=== PATIENT | female | born 1955 | race Caucasian/White ===

== ENCOUNTER 2017-05-23 03:47 | Observation (INO) | payer MEDICARE, MEDICAID ==
[2017-05-23 04:43] LABS: #Eosinphils 0.1 thou/uL (0.0-0.7); #Lymphocytes 1.7 thou/uL (1.20-3.40); #Monocytes 0.7 thou/uL (0.11-0.59); #Neutrophils 10.6 thou/uL (1.40-6.50); %Basophils 0.3 % (0.0-1.0); %Eosinophils 0.4 % (0.0-10.0); %Lymphocytes 12.7 % (21.0-51.0); %Monocytes 5.4 % (0.0-10.0); %Neutrophils 81.1 % (42.0-75.0); Hemoglobin 13.8 g/dL (12.0-16.0); Mean Corpuscular HGB CONC 33.5 g/dL (32.0-36.0); Mean Corpuscular Hemoglobin 30.1 pg (27.0-31.0); Mean Corpuscular Volume 89.7 fl (81.0-99.0); Mean Platelet Volume 6.5 fL (7.4-10.4); Platelet Count 320 thou/uL (130-400); RBC Distribution Width 11.6 % (11.5-14.5); White Blood Cell (WBC) Count 13.1 thou/uL (4.8-10.8)
[2017-05-23 05:09] LABS: ALT (SGPT) 26 U/L (8-55); AST (SGOT) 17 U/L (5-34); Albumin 4.4 g/dL (3.4-4.8); Alkaline Phosphatase 94 U/L (40-150); Anion Gap 18 mmol/L (10-20); BUN (Urea Nitrogen) 18 mg/dL (9.8-20.1); Bilirubin, Total 0.3 mg/dL (0.2-1.2); Calc. Creatinine Clearance 0 mL/min (70-130); Calcium 9.3 mg/dL (7.8-10.44); Carbon Dioxide 22 mmol/L (23-31); Chloride 101 mmol/L (98-107); Estimated GFR-MDRD 85; Globulin 2.9 g/dL (2.4-3.5); Glucose 139 mg/dL (80-115); Lipase 211 U/L (8-78); Potassium 4.1 mmol/L (3.5-5.1); Protein, Total 7.3 g/dL (6.0-8.3); Sodium 137 mmol/L (136-145)
[2017-05-23 05:13] LABS: CKMB 2.8 ng/mL (0-6.6); Troponin I Less than 0.010 ng/mL (< 0.028)
[2017-05-23] MEDS ORDERED: Acetaminophen 325 MG TAB PO PRN (07:08)
[2017-05-23] MEDS ORDERED: Ondansetron ODT 4 MG TAB SL PRN (07:08)
[2017-05-23] MEDS ORDERED: Ondansetron HCl/PF 4 MG/2 ML Vial IVP PRN (07:08)
[2017-05-23] MEDS ORDERED: Nitroglycerin 0.4 MG TAB 1 EACH SL SCH (07:15)
[2017-05-23] MEDS ORDERED: Nitroglycerin 0.4 MG TAB (25 Tab Bottle) PO PRN (07:51)
[2017-05-23 07:53] VITALS: BMI 28.5
[2017-05-23] MEDS ORDERED: hydrALAZINE 20 MG/ML VIAL SLOW IVP PRN (07:53)
[2017-05-23 07:56] LABS: Troponin I 0.015 ng/mL (< 0.028)
[2017-05-23] MEDS ORDERED: PROVENTIL INHALER 6.7 G (200 INHALATIONS) INH PRN (07:56)
[2017-05-23] MEDS ORDERED: methylPREDNISolone 4 mg Tablet PO SCH ×2 (08:00→12:00)
[2017-05-23] MEDS ORDERED: CONFIRM ALL DAY 1 DOSES ARE TIMED FOR DAY 1 FS SCH (08:15)
[2017-05-23 08:21] LABS: Cardiac Risk 2.8 (Less than 4.5)
[2017-05-23] MEDS: Atorvastatin Calcium 40 MG TAB PO SCH (08:35)
[2017-05-23] MEDS: Enoxaparin Sodium 40 MG/0.4 ML SYRINGE SC SCH (08:35)
[2017-05-23] MEDS ORDERED: Benzonatate 100 MG CAP PO PRN (09:57)
--- NOTE | 2017-05-23 10:03 | RAD ---
SINGLE VIEW CHEST: Date: 05/23/17 COMPARISON: None. HISTORY: Mid sternal chest pain. FINDINGS: Single view of the chest shows a normal sized cardiomediastinal silhouette. There is no evidence of c onsolidation, mass, or pleural effusion. The bones are unremarkable. IMPRESSION: No evidence of acute cardiopulmonary disease. POS: [facility]
--- NOTE | 2017-05-23 10:07 | HP-2 ---
DATE OF ADMISSION: 05/23/2017 CODE STATUS: FULL. PRIMARY CARE PHYSICIAN: None. ATTENDING: Dr. Chase. RESIDENT: Dr. Villa. CHIEF COMPLAINT: Chest pain. HISTORY OF PRESENT ILLNESS: This is a 61-year-old female with past medical history of CVA, prior PE, hypertension, who presents to the ED due to substernal achy chest pain with radiation to the back. She woke up from sleep around 3:00 a.m. She took 4 tablets of 81 mg aspirin at home. She has some a ssociated shortness of breath. She got a nitro by EMS, which improved her symptoms. Her blood press ure at home at symptom onset was 205/175 per the patient. She had recent chronic cough for about a m onth that is a dry cough and reports that she was diagnosed with acute bronchitis and she did with al buterol and Medrol Dosepak for this. She denies any recent fevers or chills. PAST MEDICAL HISTORY: 1. Transient ischemic attack x3. 2. CVA with residual left-sided weakness. 3. Syringomyelia. 4. Asthma. 5. Prolapsed mitral valve. 6. Hypertension. PAST SURGICAL HISTORY: 1. Appendectomy. 2. Hysterectomy. 3. Bilateral mastectomy. ALLERGIES: AMOXICILLIN, PENICILLIN. MEDICATIONS: 1. Albuterol. 2. Medrol Dosepak. FAMILY HISTORY: Brother, diabetes, coronary artery disease at 69, several other family members with diabetes. SOCIAL HISTORY: Denies tobacco or drug use. Reports that she drinks alcohol a couple glasses 2-3 ti mes a week. She is . REVIEW OF SYSTEMS: General: Denies fever, chills, fatigue. Eyes: Positive for vision changes. Ne gative for eye pain. ENT: Negative for rhinorrhea, positive for sore throat. Respiratory: Positive for cough and shortness of breath. Cardiovascular: Positive for chest pain, palpitations. Negative for edema. Gastrointestinal: Negative for nausea, vomiting. Positive for d iarrhea. Genitourinary: Negative for dysuria, polyuria. Skin: Negative for rashes or lesions. Musculoskeletal: Negative for pain or tenderness. Neurologic: Positive for left-sided weakness. N egative for numbness. PHYSICAL EXAMINATION: VITAL SIGNS: Blood pressure 164/87, pulse 91, respiratory rate 18, temperature 98.7, pulse ox 95% on room air, current weight 73.94 kilograms. GENERAL: Alert, oriented x3, no acute distress, well-nourished, appropriately interactive. EYES: PERRLA. Extraocular muscles intact. Conjunctivae within normal limits. ENT: Nasal mucosa and oropharynx within normal limits. NECK: Supple, no lymphadenopathy. CARDIOVASCULAR: Regular rate and rhythm, 3/6 systolic murmur. Pain reproduced upon palpation and price d 2+ radial and pedal pulses. RESPIRATORY: Normal effort, no retractions, clear to auscultation bilaterally. SKIN: Warm, dry. No cyanosis or lesions. ABDOMEN: Soft, nontender to palpation, normoactive bowel sounds, no masses or distention. EXTREMITIES: No cyanosis. Trace pitting edema. MUSCULOSKELETAL: Structure, tone within normal limits. Full range of motion. NEUROLOGIC: Sensation within normal limits. Residual left-sided facial droop. GCS 15. PSYCHIATRIC: Appropriate. LABORATORY DATA: WBC 13.1, hemoglobin 13.8, hematocrit 41.3, platelets 320. Sodium 137, potassium 4 .1, CO2 22, chloride 101, BUN 18, creatinine 0.7, GFR 85, glucose 139, calcium 9.3, total protein 7.3 , albumin 4.4, total bilirubin 0.3, AST 17, ALT 26, alkaline phosphatase 94, lipase 211, BNP 56.4. E KG showed prior septal infarct. IMAGING: CT dissection, preliminary read showing no dissection. ASSESSMENT AND PLAN: This is a 61-year-old female who presents with: 1. Atypical chest pain, heart score is 4. The patient has multiple risk factors for coronary artery disease; however, this is more likely musculoskeletal with atypical presentation and however reprodu cible on palpation. This is likely secondary to the patient's chronic cough. We will do an exercise stress test. We will treat with aspirin, nitro p.r.n. We will check fasting lipid panel and TSH to further risk stratify the patient. 2. Hypertensive urgency. We will give p.r.n. hydralazine, labetalol and consider starting the patie nt on p.o. hypertensive medication. 3. Mitral valve prolapse. The patient is to be on treatment, currently untreated. We will get an e cho. 4. Chronic cough. This could be contributing the patient's chest pain. We will continue albuterol and steroids for pleuritis type pain. 5. Leukocytosis, mild, this is likely secondary to steroid use. 6. History of cerebrovascular accident with residual left-sided weakness. We will check fasting lip id panel and aspirin. 7. Hyperglycemia, likely secondary to steroids. We will check fasting glucose and if abnormal, we w ill check A1c. 8. Venous thromboembolism prophylaxis. Lovenox. DISPOSITION: Observation on telemetry. Symptomatic medications will be provided. History and physical exam as well as management discussed with Dr. Chase.
[2017-05-23 11:05] LABS: Troponin I 0.016 ng/mL (< 0.028)
--- NOTE | 2017-05-23 11:18 | CT ---
PRELIMINARY REPORT/[facility]/EMERGENCY AFTER HOURS PROCEDURE: EXAM: CT Angiography Chest With Intravenous Contrast CLINICAL HISTORY: 61 years old, female; Pain; Chest pain; Patient HX: 61 y/o f w/ pmhx of tiax3 and prior provoked pe p resents for eval of substernal achey chest pain w/ radiation straight through into her back which awo ke her from sleep around 0300 this am. Endorses associated SOB. Reportedly pt checked BP at onset of pain w/ systolic in the 200's. TECHNIQUE: Axial computed tomographic angiography images of the chest with intravenous contrast using pulmonary embolism protocol. Coronal and sagittal reformatted images were created and reviewed. COMPARISON: No relevant prior studies available. FINDINGS: Pulmonary arteries: There is no evidence of peripheral filling defects within the pulmonary arterial circulation to suggest pulmonary embolism. Aorta: There is no evidence of aortic dissection, leak, rupture, or other complications. The aorta is normal. Lungs: There is subpleural atelectasis of the dependent portions of the lungs. No mass. Pleural space: Normal. No significant effusion. No pneumothorax. Heart: Normal. No cardiomegaly. No significant pericardial effusion. No evidence of RV dysfunction. Mediastinum: The trachea is normal. There are mediastinal calcifications compatible with prior granul omatous organism exposure. Thyroid: The visualized thyroid gland is unremarkable. Bones/joints: No acute fracture. No dislocation. Soft tissues: There is irregular linear density within the RIGHT breast implant which is hyperdense r elative to the LEFT breast implant. Correlate with type of surgery as this may represent implant rupt ure in the appropriate clinical setting. Lymph nodes: Normal. No enlarged lymph nodes. IMPRESSION: 1. There is no evidence of aortic dissection, leak, rupture, or other complications. 2. There is no CT evidence of acute pulmonary embolism. EXAM: CT Angiography Abdomen With Intravenous Contrast EXAM DATE/TIME: Exam ordered 05/23/2017 4:55 AM CLINICAL HISTORY: 61 years old, female; Pain; Chest pain; Patient HX: 61 y/o f w/ pmhx of tiax3 and prior provoked pe p resents for eval of substernal achey chest pain w/ radiation straight through into her back which awo ke her from sleep around 0300 this am. Endorses associated SOB. Reportedly pt checked BP at onset of pain w/ systolic in the 200's. TECHNIQUE: Axial computed tomographic angiography images of the abdomen with intravenous contrast. Coronal and sagittal reformatted images were created and reviewed. COMPARISON: No relevant prior studies available. FINDINGS: Lower thorax: No acute findings. Aorta: There is no evidence of aortic dissection, leak, rupture, or other complications. The aorta is normal. Celiac trunk and mesenteric arteries: No acute findings. No occlusion or significant stenosis. Renal arteries: No acute findings. No occlusion or significant stenosis. Liver: There is a diffuse decrease in hepatic parenchymal density, consistent with fatty infiltration . Gallbladder and bile ducts: Normal. No calcified stones. No ductal dilation. Pancreas: The pancreas is normal. No ductal dilation. Spleen: The spleen demonstrates punctate calcifications, consistent with remote granulomatous organis m exposure. Adrenals: The adrenal glands are normal. Kidneys and ureters: The kidneys are normal. No hydronephrosis. Stomach and bowel: The stomach is normal. The duodenum is unremarkable. No obstruction. No mucosal th ickening. Intraperitoneal space: Normal. No significant fluid collection. No free air. Bones/joints: There is a benign vertebral body hemangioma. No acute fracture. No dislocation. Soft tissues: Normal. No mass. Lymph nodes: Normal. No enlarged lymph nodes. IMPRESSION: There is no evidence of aortic dissection, leak, rupture, or other complications. Thank you for allowing us to participate in the care of your patient. Dictated and Authenticated by: Sascha Sauceda MD 05/23/2017 5:22 AM Central Time ([place] & [place]) FINAL REPORT CONTRAST ENHANCED CTA CHEST AND ABDOMEN: Date: 05/23/17 HISTORY: 61-year-old female with chest pain. FINDINGS: 2D and 3D reconstructed images performed on an independent 3D workstation. Preliminary exam was provided by [facility]. I concur with the dictation from [facility]. No definit e evidence of significant thoracic or abdominal aortic pathology is seen. No evidence of aneurysms or dissection seen.
[2017-05-23] MEDS: Diabetic Tussin 200 MG/10 ML UDCUP PO PRN ×3 (11:39→23:11)
--- NOTE | 2017-05-23 14:15 | PDOC.EVN ---
Event Note - Event Note Event Note: I personally evaluated the patient and discussed the management with Dr. Villa. I agree with the history, physical, assessment and plan as documented by the resident. Briefly this is a 61 year old WF with h/o TIA x 3, CVA with residual left sided weakness, HTN, asthma, syringomelia, and mitral valve prolapse whoc presented with c/o cough for last 4-6 months and new onset of substernal chest pain last night that awoke her from sleep. No prior episodes of chest pain. (+) diaphoresis. Denies any N/V. Pain radiated to her back. Took aspirin at home and pain improved with NTG. Noted in ER to have markedly elevated BP. Patietn states that she has not been on BP meds for serval months due to multiple recent moves with her 's work. EKG- no acute ST changes; troponin negative x 3. Pain reproducible on exam. A/P: 1) Pleuritic chest pain due to chronic cough- Tylenol for pain. 2) Chronic cough- suspect uncontrolled asthma and pt reports new dog in house so probable allergic component- will treat for asthma with scheduled nebulizer treatment, po steroids. 3) Moderate persistent asthma- has only been on short acting beta agonist which she has been using multiple times per day- start inhaled steroid/LABA; consider additional of singulair. 4) HTN- start BP medsications and titrate as needed.
[2017-05-23] MEDS ORDERED: ISOVUE-370 76%-LOCM 1 ML ONE (16:01)
[2017-05-23] MEDS: methylPREDNISolone 4 mg Tablet PO SCH ×2 (16:46→20:42)
[2017-05-23] MEDS ORDERED: Loratadine 10 MG TAB PO SCH (18:15)
[2017-05-23] MEDS: Mometasone/Formoterol 120 PUFF INHALER INH SCH (19:16)
[2017-05-23] MEDS: Verapamil 80 MG TAB PO SCH (20:41)
[2017-05-23] MEDS: Ketorolac Tromethamine 10 MG TAB PO PRN (23:51)
[2017-05-24 04:04] VITALS: TEMP 97.9
[2017-05-24 05:18] LABS: #Basophils 0.1 thou/uL (0.0-0.2); #Lymphocytes 1.4 thou/uL (1.20-3.40); #Monocytes 0.9 thou/uL (0.11-0.59); %Basophils 0.6 % (0.0-1.0); %Eosinophils 0.4 % (0.0-10.0); %Lymphocytes 13.6 % (21.0-51.0); %Monocytes 8.3 % (0.0-10.0); %Neutrophils 77.2 % (42.0-75.0); Hemoglobin 13.4 g/dL (12.0-16.0); Mean Corpuscular HGB CONC 31.9 g/dL (32.0-36.0); Mean Corpuscular Hemoglobin 28.9 pg (27.0-31.0); Mean Corpuscular Volume 90.6 fl (81.0-99.0); Platelet Count 281 thou/uL (130-400); RBC Distribution Width 11.8 % (11.5-14.5); Red Blood Cell (RBC) Count 4.62 mill/uL (4.20-5.40); White Blood Cell (WBC) Count 10.4 thou/uL (4.8-10.8)
[2017-05-24 05:36] LABS: Anion Gap 12 mmol/L (10-20); BUN (Urea Nitrogen) 18 mg/dL (9.8-20.1); Calc. Creatinine Clearance 109 mL/min (70-130); Calcium 9.1 mg/dL (7.8-10.44); Carbon Dioxide 27 mmol/L (23-31); Chloride 102 mmol/L (98-107); Estimated GFR-MDRD 86; Glucose 129 mg/dL (80-115); Potassium 4.2 mmol/L (3.5-5.1); Sodium 137 mmol/L (136-145)
[2017-05-24] MEDS: Ketorolac Tromethamine 10 MG TAB PO PRN (07:10)
[2017-05-24] MEDS ORDERED: methylPREDNISolone 4 mg Tablet PO SCH ×3 (08:00→21:00)
[2017-05-24] MEDS: Mometasone/Formoterol 120 PUFF INHALER INH SCH (08:37)
[2017-05-24] MEDS: Enoxaparin Sodium 40 MG/0.4 ML SYRINGE SC SCH (08:58)
[2017-05-24] MEDS: Verapamil 80 MG TAB PO SCH (09:02)
[2017-05-24] MEDS: Atorvastatin Calcium 40 MG TAB PO SCH (09:02)
[2017-05-24] MEDS: Diabetic Tussin 200 MG/10 ML UDCUP PO PRN (09:02)
--- NOTE | 2017-05-24 09:11 | PDOC.FM ---
- Subjective Subjective: Pt had no acute events overnight. Reports improvement in both epigastric/lower sternal pain and improved respiratory status with inhaler. Denies SOB, NVDC, tolerating diet. - Objective Vital Signs & Weight: Vital Signs (12 hours) Temp Pulse Resp BP Pulse Ox 05/24/17 08:38 90 14 05/24/17 08:09 97.9 F 78 16 05/24/17 03:55 97.9 F 78 16 139/72 97 05/24/17 00:29 70 18 96 05/23/17 23:11 81 16 165/82 H 95 Weight Weight 80.739 kg I&O: 05/23/17 05/24/17 05/25/17 06:59 06:59 06:59 Intake Total 1725 Output Total 800 800 Balance 925 -800 Result Diagrams: 05/24/17 04:25 05/24/17 04:25 <Bhargav Velasquez - Last Filed: 05/24/17 09:14> - Objective Vital Signs & Weight: Vital Signs (12 hours) Temp Pulse Resp BP Pulse Ox 05/24/17 08:38 90 14 05/24/17 08:09 97.9 F 78 16 05/24/17 08:00 101 H 18 146/70 H 97 05/24/17 03:55 97.9 F 78 16 139/72 97 05/24/17 00:29 70 18 96 Weight Weight 80.739 kg I&O: 05/23/17 05/24/17 05/25/17 06:59 06:59 06:59 Intake Total 1725 240 Output Total 800 800 Balance 925 -560 Result Diagrams: 05/24/17 04:25 05/24/17 04:25 <Julianna Chase - Last Filed: 05/24/17 11:24> Phys Exam - Physical Examination Constitutional: NAD HEENT: PERRLA, sclera anicteric Neck: no nodes, no JVD Respiratory: no wheezing, no rales, no rhonchi, clear to auscultation bilateral Cardiovascular: RRR, no rub diastolic murmur 2/6 Gastrointestinal: soft, non-tender, no distention, positive bowel sounds Musculoskeletal: no edema, pulses present Neurological: non-focal, moves all 4 limbs Psychiatric: normal affect <Bhargav Velasquez - Last Filed: 05/24/17 09:14> Dx/Plan (1) Atypical chest pain Code(s): R07.89 - OTHER CHEST PAIN Status: Acute (2) Asthma Code(s): J45.909 - UNSPECIFIED ASTHMA, UNCOMPLICATED Status: Acute (3) Seasonal allergies Code(s): J30.2 - OTHER SEASONAL ALLERGIC RHINITIS Status: Acute (4) Elevated lipase Code(s): R74.8 - ABNORMAL LEVELS OF OTHER SERUM ENZYMES Status: Acute - Plan Plan: pt reports improvement in symptoms since yesterday had echo done today, denied chemical stress and wishes to have OP treadmill stress BP improved with verapamil SOB/cough improved with use of dulera and duonebs continue claritin stable for DC today, f/u OP w/in 2 weeks elevated lipase: pt tolerating PO and states her pain is improving, can f/u OP elevated BS, will check A1c <Bhargav Velasquez - Last Filed: 05/24/17 09:14> Attending Addendum - Attending Addendum I personally evaluated the patient and discussed the management with Dr. Velasquez. I agree with the History, Examination, Assessment and Plan documented above with any addition or exceptions noted below- Patient feeling better; cough improved. SOB improved. Afebrile VSS A/P: 1) Asthma exacerbation- improved; plan to d/c home today with steroid/LABA inhaler, albuterol, and short course po steroids. 2) Chronic cough- most likely related to asthma; continue current meds. 3) HTN urgency- improved; continue current meds. D/c home today and follow -up in clinic in 1-2 weeks. <Julianna Chase - Last Filed: 05/24/17 11:24>
[2017-05-24 09:26] VITALS: BP 146/70
[2017-05-24 09:39] LABS: Hemoglobin A1c 5.6 % (4.0-6.0)
[2017-05-25] MEDS ORDERED: methylPREDNISolone 4 mg Tablet PO SCH ×2 (08:00)
--- NOTE | 2017-05-25 12:02 | DIS-2 ---
DATE OF SERVICE: 06/01/2017 DATE OF ADMISSION: 05/23/2017 DATE OF DISCHARGE: 05/24/2017 LOCATION: [place], [place]. CO-SIGNER: Julianna Chase M.D. ADMITTING ATTENDING: Julianna Chase M.D. DISCHARGE ATTENDING: Julianna Chase M.D. CONSULTS: None. PROCEDURES: 1. Chest x-ray done on 05/23/2017 showed no evidence of acute cardiopulmonary process. 2. CT dissection protocol done on 05/23/2017 showed no evidence of dissection leak, rupture or other complications. 3. Echocardiogram done on 05/23/2017 showed ejection fraction at 55-60%, normal right ventricular si ze and function, left atrium and normal size, normal right atrium size, mild mitral regurgitation, st ructurally normal aortic valve, trace tricuspid regurg, and mild pulmonic regurgitation. PRIMARY DIAGNOSIS: Atypical chest pain. SECONDARY DIAGNOSES: 1. Hypertension. 2. Asthma. 3. Seasonal allergies. DISCHARGE MEDICATIONS: 1. Albuterol 2 puffs q.6 hours as needed. 2. Atorvastatin 40 mg daily. 3. Medrol Dosepak 4 mg p.o. as directed. 4. Dulera 1 puff b.i.d. 5. Verapamil 80 mg p.o. t.i.d. DISCONTINUED MEDICATIONS: None. HISTORY OF PRESENT ILLNESS/HOSPITAL COURSE: The patient is a 61-year-old female who initially presen annalee with substernal achy chest pain with radiation to her back that woke her up from sleep. She also had some associated shortness of breath. In the emergency department, she was given nitro and her t roponins were trended as well as EKG performed. As reported by the patient, her blood pressure at [facility] was 205/175. She also reported a dry cough for a month prior to her visit to the ER. Serial trop onins were drawn and found to be 0.015, 0.016. CK-MB was performed and was found to be 2.8. A fasti ng lipid panel revealed triglycerides of 77, total cholesterol 231, LDL 133, HDL 83. Overall, the patient had an uncomplicated hospital course and was found to have no acute coronary syn drome and there is no concern for PR. She was discharged home on her regular medications and left [facility] in stable condition. DISPOSITION: Stable. DISCHARGE INSTRUCTIONS: 1. Location: Home. 2. Diet: Heart healthy. 3. Activity: Ad víctor. 4. Followup: The patient is to follow up with [facility] in 7-10 days following discharge .
[2017-05-26] MEDS ORDERED: methylPREDNISolone 4 mg Tablet PO SCH ×2 (08:00)
[2017-05-27] MEDS ORDERED: methylPREDNISolone 4 mg Tablet PO SCH (08:00)
[2017-05-28] MEDS ORDERED: methylPREDNISolone 4 mg Tablet PO SCH (08:00)
--- NOTE | 2017-06-02 17:49 | EKG ---
Test Reason : Blood Pressure : / mmHG Vent. Rate : 108 BPM Atrial Rate : 108 BPM P-R Int : 164 ms QRS Dur : 086 ms QT Int : 362 ms P-R-T Axes : 059 012 045 degrees QTc Int : 485 ms Sinus tachycardia Septal infarct , age undetermined Abnormal ECG Confirmed by KASEY HUGHES D.O. ([id number]), story editor CELESTINA PRYOR ([id number]) on 06/02/2017 5:48:10 PM Referred By: Confirmed By:KASEY HUGHES D.O.
== END 2017-05-24 12:34 | disposition home or self-care (01) ==
LOC: ERS 03:47 → 2SW 05:55
PROVIDERS: ADMIT Emergency Medicine; ATTEND Emergency Medicine
DX: R07.89 Other chest pain (principal); I16.0 Hypertensive urgency; I34.1 Nonrheumatic mitral (valve) prolapse; R05 Cough; D72.829 Elevated white blood cell count, unspecified; R73.9 Hyperglycemia, unspecified; I10 Essential (primary) hypertension; I69.354 Hemiplegia and hemiparesis following cerebral infarction affecting left non-dominant side; J45.909 Unspecified asthma, uncomplicated; G95.0 Syringomyelia and syringobulbia; Z79.52 Long term (current) use of systemic steroids; Z79.899 Other long term (current) drug therapy; Z88.0 Allergy status to penicillin; Z90.49 Acquired absence of other specified parts of digestive tract; Z90.710 Acquired absence of both cervix and uterus; Z90.13 Acquired absence of bilateral breasts and nipples; Z86.711 Personal history of pulmonary embolism
CPT/HCPCS: 71045; 71275; 80048; 80061; 82553; 83036; 83690; 83880; 84484 ×2; 85025; 93005; 93306; 94640 ×5; 94664; 99285; G0378; 36415; 80053; 84443; J1650; J7620